=== PATIENT | male | born 1955 | race Caucasian/White ===

== ENCOUNTER 2017-11-25 17:19 | Inpatient (IN) | payer BC ==
[2017-11-25] MEDS ORDERED: ACETAMINOPHEN 325 MG TAB PO (19:00)
[2017-11-25] MEDS ORDERED: NACL 0.9% 3 ML SYG IV (19:00)
[2017-11-25 19:55] LABS: ADD MAN DIFF? NO
[2017-11-25 19:58] LABS: BASOPHILS % 0.5 % (0.0-2.0); EOSINOPHILS # 0.1 10^3/ul (0.0-0.5); EOSINOPHILS % 2.3 % (0.0-7.0); HEMATOCRIT 42.9 % (42.0-52.0); HEMOGLOBIN 14.9 g/dl (14.0-18.0); LYMPHOCYTES % 16.7 % (15.0-51.0); MEAN CORPUSCULAR HEMOGLOBIN 28.9 pg (29.0-33.0); MEAN CORPUSCULAR HGB CONC 34.7 g/dl (32.0-37.0); MEAN CORPUSCULAR VOLUME 83.1 fl (82.0-101.0); MEAN PLATELET VOLUME 11.1 fl (7.4-10.4); MONOCYTE # 0.6 10^3/ul (0.3-0.9); MONOCYTES % 9.1 % (0.0-11.0); NEUTROPHIL # 4.4 10^3/ul (1.6-7.5); NEUTROPHILS % 71.1 % (39.0-77.0); PLATELET COUNT 215 10^3/UL (140-415); RED BLOOD COUNT 5.16 10^6/ul (4.70-6.10); RED CELL DISTRIBUTION WIDTH 14.8 % (11.5-14.5)
[2017-11-25 19:58] LABS: WHITE BLOOD COUNT 6.2 10^3/ul (4.8-10.8)
[2017-11-25 20:18] LABS: ALANINE AMINOTRANSFERASE 61 IU/L (13-69); ALBUMIN 4.2 g/dl (3.3-4.9); ALBUMIN/GLOBULIN RATIO 1.16; ALKALINE PHOSPHATASE 71 IU/L (42-121); ANION GAP 12 (8-16); ASPARTATE AMINO TRANSFERASE 39 IU/L (15-46); BILIRUBIN,INDIRECT 0.7 mg/dl (0-1.1); BILIRUBIN,TOTAL 0.7 mg/dl (0.2-1.3); BLOOD UREA NITROGEN 27 mg/dl (7-20); CALCIUM 9.7 mg/dl (8.4-10.2); CARBON DIOXIDE 36 mmol/L (21-31); CHLORIDE 94 mmol/L (97-110); CREATININE 1.71 mg/dl (0.61-1.24); GLUCOSE 104 mg/dl (70-220); MAGNESIUM 1.9 mg/dl (1.7-2.5); POTASSIUM 3.3 mmol/L (3.5-5.1); SODIUM 139 mmol/L (135-144); TOTAL PROTEIN 7.8 g/dl (6.1-8.1)
[2017-11-25 20:28] LABS: INR 1.05; PROTIME 13.8 Sec (11.9-14.9); PT RATIO 1.1
[2017-11-25 20:29] LABS: PARTIAL THROMBOPLASTIN TIME 25.7 Sec (25.0-35.0)
[2017-11-25] MEDS: oxyCODONE (CR) 20 MG TAB [oxyCONTIN] PO (21:00)
[2017-11-25] MEDS: DOCUSATE SODIUM 100 MG CAP PO (21:34)
[2017-11-25] MEDS: LORAZEPAM 1 MG TAB PO (21:34)
[2017-11-25] MEDS: ATORVASTATIN 20 MG TAB PO (21:35)
[2017-11-25] MEDS: POTASSIUM CHLORIDE (SR) 20 MEQ TAB PO (21:35)
[2017-11-25] MEDS: GABAPENTIN 300 MG CAP PO (21:35)
[2017-11-25] MEDS: PAROXETINE (CR) 12.5 MG TAB PO (21:38)
[2017-11-26] MEDS: HYDROCODONE/APAP (10/325) TAB PO (04:26)
[2017-11-26] MEDS: PANTOPRAZOLE (EC) 40 MG TAB PO (05:38)
[2017-11-26] MEDS: BUMETANIDE 1 MG TAB PO ×2 (05:38→18:33)
[2017-11-26] MEDS: LORAZEPAM 1 MG TAB PO ×2 (09:40→21:13)
[2017-11-26] MEDS: METOLAZONE 2.5 MG TAB PO (09:40)
[2017-11-26] MEDS: GABAPENTIN 300 MG CAP PO ×3 (09:40→21:07)
[2017-11-26] MEDS: POTASSIUM CHLORIDE (SR) 20 MEQ TAB PO ×3 (09:40→21:09)
[2017-11-26] MEDS: PAROXETINE (CR) 12.5 MG TAB PO (09:41)
[2017-11-26] MEDS: MIDODRINE 5 MG TAB PO ×2 (09:41→18:32)
[2017-11-26] MEDS: oxyCODONE (CR) 20 MG TAB [oxyCONTIN] PO ×2 (09:41→21:11)
[2017-11-26] MEDS: SPIRONOLACTONE 25 MG TAB PO ×2 (09:42→21:10)
[2017-11-26] MEDS: INFLUENZA VIRUS VACCINE 0.5 ML (DISPENSING) IM* (09:43)
[2017-11-26 09:52] LABS: ADD UMIC NO; UR ASCORBIC ACID NEGATIVE (NEGATIVE); UR BILIRUBIN (Dip) NEGATIVE (NEGATIVE); UR BLOOD (Dip) NEGATIVE (NEGATIVE); UR CLARITY CLEAR (CLEAR); UR COLOR STRAW (YELLOW); UR GLUCOSE (Dip) NEGATIVE (NEGATIVE); UR KETONES (Dip) NEGATIVE (NEGATIVE); UR LEUKOCYTE ESTERASE (Dip) NEGATIVE Leu/ul (NEGATIVE); UR NITRITE (Dip) NEGATIVE (NEGATIVE); UR SPECIFIC GRAVITY (Dip) 1.008 (1.003-1.030); UR TOTAL PROTEIN (Dip) NEGATIVE (NEGATIVE); UR UROBILINOGEN (Dip) NEGATIVE (NEGATIVE)
[2017-11-26 10:03] LABS: PROTEIN/CREAT RATIO 0.22 RATIO
[2017-11-26] MEDS: SILVER NITRATE SWAB TOP (15:30)
[2017-11-26] MEDS ORDERED: RIVAROXABAN 20 MG TABLET PO (17:55)
[2017-11-26] MEDS: oxyCODONE 5 MG TAB PO (18:33)
[2017-11-26] MEDS ORDERED: VITAMIN A & D 5 GM OINT PACKET TOP (21:01)
[2017-11-26] MEDS: DOCUSATE SODIUM 100 MG CAP PO (21:07)
[2017-11-26] MEDS: ATORVASTATIN 20 MG TAB PO (21:10)
[2017-11-27] MEDS: oxyCODONE 5 MG TAB PO ×2 (03:02→11:04)
[2017-11-27] MEDS: PANTOPRAZOLE (EC) 40 MG TAB PO (06:15)
[2017-11-27] MEDS: BUMETANIDE 1 MG TAB PO ×2 (06:15→18:10)
[2017-11-27] MEDS ORDERED: LIDOCAINE 1.5%/EPI MPF (SDV) 30 ML VIAL INJ (07:00)
[2017-11-27] MEDS ORDERED: HEPARIN 1000 UNITS/ML 10 ML INJ (07:31)
[2017-11-27] MEDS ORDERED: NITROGLYCERIN (IC) 100 MCG/ML INJ (07:32)
[2017-11-27] MEDS ORDERED: FENTAnyl 50 MCG/ML VIAL (07:32)
[2017-11-27] MEDS ORDERED: MIDAZOLAM 1 MG/ML 2 ML INJ ×2 (07:32→07:44)
[2017-11-27] MEDS ORDERED: VERAPAMIL 5 MG INJ (07:32)
[2017-11-27 07:34] LABS: ADD MAN DIFF? NO
[2017-11-27] MEDS ORDERED: HYDROmorphONE 2 MG/ML SYG ×2 (07:38→07:58)
[2017-11-27 07:43] LABS: WHITE BLOOD COUNT 6.1 10^3/ul (4.8-10.8)
[2017-11-27 07:43] LABS: BASOPHILS % 0.5 % (0.0-2.0); EOSINOPHILS # 0.4 10^3/ul (0.0-0.5); EOSINOPHILS % 6.3 % (0.0-7.0); HEMATOCRIT 43.3 % (42.0-52.0); HEMOGLOBIN 14.6 g/dl (14.0-18.0); LYMPHOCYTES # 1.4 10^3/ul (0.8-2.9); LYMPHOCYTES % 22.4 % (15.0-51.0); MEAN CORPUSCULAR HEMOGLOBIN 28.4 pg (29.0-33.0); MEAN CORPUSCULAR HGB CONC 33.7 g/dl (32.0-37.0); MEAN CORPUSCULAR VOLUME 84.2 fl (82.0-101.0); MEAN PLATELET VOLUME 11.3 fl (7.4-10.4); MONOCYTE # 0.7 10^3/ul (0.3-0.9); NEUTROPHIL # 3.6 10^3/ul (1.6-7.5); NEUTROPHILS % 58.6 % (39.0-77.0); PLATELET COUNT 216 10^3/UL (140-415); RED BLOOD COUNT 5.14 10^6/ul (4.70-6.10); RED CELL DISTRIBUTION WIDTH 14.6 % (11.5-14.5)
[2017-11-27] MEDS ORDERED: DIPHENHYDRAMINE 50 MG INJ (07:57)
[2017-11-27 07:59] LABS: ANION GAP 16 (8-16); BLOOD UREA NITROGEN 31 mg/dl (7-20); CALCIUM 9.9 mg/dl (8.4-10.2); CARBON DIOXIDE 35 mmol/L (21-31); CHLORIDE 95 mmol/L (97-110); CREATININE 1.92 mg/dl (0.61-1.24); GLUCOSE 95 mg/dl (70-220); SODIUM 143 mmol/L (135-144)
[2017-11-27 08:00] LABS: INR 1.02; PROTIME 13.5 Sec (11.9-14.9); PT RATIO 1.1
[2017-11-27 08:44] LABS: ALANINE AMINOTRANSFERASE 51 IU/L (13-69); ALBUMIN 3.8 g/dl (3.3-4.9); ALBUMIN/GLOBULIN RATIO 1.18; ALKALINE PHOSPHATASE 57 IU/L (42-121); ANION GAP 16 (8-16); ASPARTATE AMINO TRANSFERASE 39 IU/L (15-46); BILIRUBIN,INDIRECT 0.8 mg/dl (0-1.1); BILIRUBIN,TOTAL 0.8 mg/dl (0.2-1.3); BLOOD UREA NITROGEN 32 mg/dl (7-20); CALCIUM 9.8 mg/dl (8.4-10.2); CARBON DIOXIDE 34 mmol/L (21-31); CHLORIDE 95 mmol/L (97-110); CREATININE 1.85 mg/dl (0.61-1.24); GLUCOSE 86 mg/dl (70-220); POTASSIUM 3.3 mmol/L (3.5-5.1); SODIUM 142 mmol/L (135-144)
[2017-11-27] MEDS ORDERED: ONDANSETRON 4 MG INJ (08:49)
[2017-11-27] MEDS: SOD CHLORIDE 0.45% 1,000 ML IV (09:32)
[2017-11-27] MEDS ORDERED: ONDANSETRON 4 MG INJ IV (10:00)
[2017-11-27 10:16] LABS: B-TYPE NATRIURETIC PEPTIDE 19 PG/ML (0-125)
[2017-11-27] MEDS: PAROXETINE (CR) 12.5 MG TAB PO (11:01)
[2017-11-27] MEDS: GABAPENTIN 300 MG CAP PO ×3 (11:01→20:14)
[2017-11-27] MEDS: DOCUSATE SODIUM 100 MG CAP PO ×2 (11:04→20:14)
[2017-11-27] MEDS: LORAZEPAM 1 MG TAB PO ×2 (11:04→20:15)
[2017-11-27] MEDS: POTASSIUM CHLORIDE (SR) 20 MEQ TAB PO ×4 (11:05→20:14)
[2017-11-27] MEDS: oxyCODONE (CR) 20 MG TAB [oxyCONTIN] PO ×2 (11:08→20:14)
[2017-11-27] MEDS: MIDODRINE 5 MG TAB PO ×2 (11:08→18:10)
[2017-11-27] MEDS: HYDROmorphONE 0.5 MG/0.5 ML SYG IV (16:42)
[2017-11-27] MEDS: METOLAZONE 2.5 MG TAB PO (18:11)
[2017-11-27] MEDS: HYDROCORTISONE 1% 28.35 GM OINT TOP (18:11)
[2017-11-27] MEDS: ATORVASTATIN 20 MG TAB PO (20:14)
[2017-11-28] MEDS: HYDROCORTISONE 1% 28.35 GM OINT TOP (00:50)
[2017-11-28] MEDS: HYDROmorphONE 0.5 MG/0.5 ML SYG IV ×2 (04:04→17:59)
[2017-11-28] MEDS: BUMETANIDE 1 MG TAB PO (05:28)
[2017-11-28] MEDS: SPIRONOLACTONE 25 MG TAB PO ×2 (05:29→17:12)
[2017-11-28] MEDS: PANTOPRAZOLE (EC) 40 MG TAB PO (05:29)
[2017-11-28 08:32] LABS: ADD MAN DIFF? NO
[2017-11-28 08:38] LABS: WHITE BLOOD COUNT 6.8 10^3/ul (4.8-10.8)
[2017-11-28 08:38] LABS: BASOPHILS % 0.3 % (0.0-2.0); EOSINOPHILS # 0.4 10^3/ul (0.0-0.5); EOSINOPHILS % 5.2 % (0.0-7.0); HEMATOCRIT 42.8 % (42.0-52.0); HEMOGLOBIN 14.7 g/dl (14.0-18.0); LYMPHOCYTES # 1.2 10^3/ul (0.8-2.9); LYMPHOCYTES % 17.4 % (15.0-51.0); MEAN CORPUSCULAR HEMOGLOBIN 29.1 pg (29.0-33.0); MEAN CORPUSCULAR HGB CONC 34.3 g/dl (32.0-37.0); MEAN CORPUSCULAR VOLUME 84.6 fl (82.0-101.0); MEAN PLATELET VOLUME 11.4 fl (7.4-10.4); MONOCYTE # 0.9 10^3/ul (0.3-0.9); MONOCYTES % 12.5 % (0.0-11.0); NEUTROPHIL # 4.4 10^3/ul (1.6-7.5); NEUTROPHILS % 64.2 % (39.0-77.0); PLATELET COUNT 210 10^3/UL (140-415); RED BLOOD COUNT 5.06 10^6/ul (4.70-6.10); RED CELL DISTRIBUTION WIDTH 14.6 % (11.5-14.5)
[2017-11-28] MEDS: MIDODRINE 5 MG TAB PO ×2 (08:51→17:11)
[2017-11-28] MEDS: METOLAZONE 2.5 MG TAB PO (08:52)
[2017-11-28] MEDS: PAROXETINE (CR) 12.5 MG TAB PO (08:52)
[2017-11-28] MEDS: oxyCODONE (CR) 20 MG TAB [oxyCONTIN] PO ×2 (08:53→20:28)
[2017-11-28] MEDS: DOCUSATE SODIUM 100 MG CAP PO ×2 (08:53→20:26)
[2017-11-28] MEDS: POTASSIUM CHLORIDE (SR) 20 MEQ TAB PO ×4 (08:53→20:27)
[2017-11-28] MEDS: LORAZEPAM 1 MG TAB PO ×2 (08:53→20:26)
[2017-11-28] MEDS: GABAPENTIN 300 MG CAP PO ×3 (08:53→20:27)
[2017-11-28 08:59] LABS: ALANINE AMINOTRANSFERASE 65 IU/L (13-69); ALBUMIN/GLOBULIN RATIO 1.11; ALKALINE PHOSPHATASE 61 IU/L (42-121); ANION GAP 16 (8-16); ASPARTATE AMINO TRANSFERASE 117 IU/L (15-46); BILIRUBIN,INDIRECT 0.9 mg/dl (0-1.1); BILIRUBIN,TOTAL 0.9 mg/dl (0.2-1.3); BLOOD UREA NITROGEN 35 mg/dl (7-20); CARBON DIOXIDE 38 mmol/L (21-31); CHLORIDE 91 mmol/L (97-110); CREATININE 2.26 mg/dl (0.61-1.24); GLUCOSE 92 mg/dl (70-220); POTASSIUM 3.1 mmol/L (3.5-5.1); SODIUM 142 mmol/L (135-144); TOTAL PROTEIN 7.6 g/dl (6.1-8.1)
[2017-11-28] MEDS: RIVAROXABAN 20 MG TABLET PO (17:11)
[2017-11-28] MEDS: NYSTATIN 30 GM POWDER BTL TOP (20:26)
[2017-11-28] MEDS: ATORVASTATIN 20 MG TAB PO (20:26)
[2017-11-29] MEDS: SPIRONOLACTONE 25 MG TAB PO ×2 (05:28→17:18)
[2017-11-29] MEDS: PANTOPRAZOLE (EC) 40 MG TAB PO (05:28)
[2017-11-29 08:23] LABS: ALANINE AMINOTRANSFERASE 63 IU/L (13-69); ALBUMIN 3.6 g/dl (3.3-4.9); ALBUMIN/GLOBULIN RATIO 1.16; ALKALINE PHOSPHATASE 52 IU/L (42-121); ANION GAP 14 (8-16); ASPARTATE AMINO TRANSFERASE 94 IU/L (15-46); BILIRUBIN,INDIRECT 0.6 mg/dl (0-1.1); BILIRUBIN,TOTAL 0.6 mg/dl (0.2-1.3); BLOOD UREA NITROGEN 42 mg/dl (7-20); CALCIUM 8.8 mg/dl (8.4-10.2); CARBON DIOXIDE 38 mmol/L (21-31); CHLORIDE 94 mmol/L (97-110); CREATININE 2.21 mg/dl (0.61-1.24); GLUCOSE 97 mg/dl (70-220); POTASSIUM 3.7 mmol/L (3.5-5.1); SODIUM 142 mmol/L (135-144); TOTAL PROTEIN 6.7 g/dl (6.1-8.1)
[2017-11-29 08:28] LABS: B-TYPE NATRIURETIC PEPTIDE 58 PG/ML (0-125)
[2017-11-29] MEDS: DOCUSATE SODIUM 100 MG CAP PO ×2 (08:31→20:24)
[2017-11-29] MEDS: METOLAZONE 2.5 MG TAB PO (08:31)
[2017-11-29] MEDS: GABAPENTIN 300 MG CAP PO ×3 (08:31→20:23)
[2017-11-29] MEDS: oxyCODONE (CR) 20 MG TAB [oxyCONTIN] PO ×2 (08:31→20:23)
[2017-11-29] MEDS: MIDODRINE 5 MG TAB PO ×2 (08:31→17:18)
[2017-11-29] MEDS: PAROXETINE (CR) 12.5 MG TAB PO (08:32)
[2017-11-29] MEDS: BUMETANIDE 1 MG TAB PO (08:32)
[2017-11-29] MEDS: LORAZEPAM 1 MG TAB PO ×2 (08:32→20:23)
[2017-11-29] MEDS: POTASSIUM CHLORIDE (SR) 20 MEQ TAB PO ×3 (08:32→20:24)
[2017-11-29] MEDS: HYDROmorphONE 0.5 MG/0.5 ML SYG IV ×2 (08:47→17:17)
[2017-11-29] MEDS: NYSTATIN 30 GM POWDER BTL TOP ×2 (12:18→20:22)
[2017-11-29] MEDS: RIVAROXABAN 20 MG TABLET PO (17:18)
[2017-11-29] MEDS: ATORVASTATIN 20 MG TAB PO (20:24)
[2017-11-30] MEDS: PANTOPRAZOLE (EC) 40 MG TAB PO (05:07)
[2017-11-30] MEDS: SPIRONOLACTONE 25 MG TAB PO ×2 (05:08→17:16)
[2017-11-30 08:24] LABS: ADD MAN DIFF? NO
[2017-11-30 08:32] LABS: BASOPHILS % 0.6 % (0.0-2.0); EOSINOPHILS # 0.4 10^3/ul (0.0-0.5); EOSINOPHILS % 7.4 % (0.0-7.0); HEMATOCRIT 39.1 % (42.0-52.0); HEMOGLOBIN 13.6 g/dl (14.0-18.0); LYMPHOCYTES % 17.8 % (15.0-51.0); MEAN CORPUSCULAR HEMOGLOBIN 28.9 pg (29.0-33.0); MEAN CORPUSCULAR HGB CONC 34.8 g/dl (32.0-37.0); MEAN CORPUSCULAR VOLUME 83.2 fl (82.0-101.0); MEAN PLATELET VOLUME 11.5 fl (7.4-10.4); MONOCYTE # 0.7 10^3/ul (0.3-0.9); MONOCYTES % 13.4 % (0.0-11.0); NEUTROPHIL # 3.3 10^3/ul (1.6-7.5); NEUTROPHILS % 60.6 % (39.0-77.0); PLATELET COUNT 194 10^3/UL (140-415); RED CELL DISTRIBUTION WIDTH 14.3 % (11.5-14.5)
[2017-11-30 08:32] LABS: WHITE BLOOD COUNT 5.4 10^3/ul (4.8-10.8)
[2017-11-30 08:57] LABS: ALANINE AMINOTRANSFERASE 59 IU/L (13-69); ALBUMIN 3.6 g/dl (3.3-4.9); ALBUMIN/GLOBULIN RATIO 0.97; ALKALINE PHOSPHATASE 56 IU/L (42-121); ANION GAP 14 (8-16); ASPARTATE AMINO TRANSFERASE 69 IU/L (15-46); BILIRUBIN,INDIRECT 0.5 mg/dl (0-1.1); BILIRUBIN,TOTAL 0.5 mg/dl (0.2-1.3); BLOOD UREA NITROGEN 37 mg/dl (7-20); CARBON DIOXIDE 37 mmol/L (21-31); CHLORIDE 93 mmol/L (97-110); CREATININE 2.07 mg/dl (0.61-1.24); GLUCOSE 98 mg/dl (70-220); POTASSIUM 3.2 mmol/L (3.5-5.1); SODIUM 141 mmol/L (135-144); TOTAL PROTEIN 7.3 g/dl (6.1-8.1)
[2017-11-30] MEDS: NYSTATIN 30 GM POWDER BTL TOP ×2 (08:58→20:30)
[2017-11-30] MEDS: HYDROCORTISONE 1% 28.35 GM OINT TOP (08:58)
[2017-11-30] MEDS: PAROXETINE (CR) 12.5 MG TAB PO (08:59)
[2017-11-30] MEDS: oxyCODONE (CR) 20 MG TAB [oxyCONTIN] PO ×2 (09:00→20:13)
[2017-11-30] MEDS: POTASSIUM CHLORIDE (SR) 20 MEQ TAB PO ×4 (09:01→20:14)
[2017-11-30] MEDS: METOLAZONE 2.5 MG TAB PO (09:02)
[2017-11-30] MEDS: BUMETANIDE 1 MG TAB PO (09:02)
[2017-11-30] MEDS: DOCUSATE SODIUM 100 MG CAP PO ×2 (09:02→20:14)
[2017-11-30] MEDS: GABAPENTIN 300 MG CAP PO ×3 (09:02→20:13)
[2017-11-30] MEDS: LORAZEPAM 1 MG TAB PO ×2 (09:03→20:15)
[2017-11-30] MEDS: MIDODRINE 5 MG TAB PO ×2 (09:04→17:16)
[2017-11-30] MEDS: HYDROmorphONE 0.5 MG/0.5 ML SYG IV ×2 (10:00→20:18)
[2017-11-30] MEDS ORDERED: POLYETHYLENE GLYCOL 17 GM PACKET PO (13:30)
[2017-11-30] MEDS: RIVAROXABAN 20 MG TABLET PO (17:16)
[2017-11-30] MEDS: POLYETHYLENE GLYCOL 17 GM PACKET PO (20:00)
[2017-11-30] MEDS: ATORVASTATIN 20 MG TAB PO (20:14)
[2017-12-01] MEDS: HYDROmorphONE 0.5 MG/0.5 ML SYG IV ×3 (02:03→20:40)
[2017-12-01] MEDS: SPIRONOLACTONE 25 MG TAB PO (04:51)
[2017-12-01] MEDS: DIPHENHYDRAMINE 25 MG CAP PO (04:51)
[2017-12-01] MEDS: PANTOPRAZOLE (EC) 40 MG TAB PO (04:51)
[2017-12-01] MEDS: GABAPENTIN 300 MG CAP PO ×3 (08:23→20:51)
[2017-12-01] MEDS: LORAZEPAM 1 MG TAB PO ×2 (08:23→20:43)
[2017-12-01] MEDS: BUMETANIDE 1 MG TAB PO (08:23)
[2017-12-01] MEDS: PAROXETINE (CR) 12.5 MG TAB PO (08:23)
[2017-12-01] MEDS: oxyCODONE (CR) 20 MG TAB [oxyCONTIN] PO ×2 (08:23→20:44)
[2017-12-01] MEDS: DOCUSATE SODIUM 100 MG CAP PO ×2 (08:23→20:50)
[2017-12-01] MEDS: POTASSIUM CHLORIDE (SR) 20 MEQ TAB PO ×4 (08:24→20:51)
[2017-12-01] MEDS: NYSTATIN 30 GM POWDER BTL TOP ×2 (08:26→20:59)
[2017-12-01] MEDS: MIDODRINE 5 MG TAB PO ×2 (08:26→17:33)
[2017-12-01] MEDS: POLYETHYLENE GLYCOL 17 GM PACKET PO (08:29)
[2017-12-01 10:54] LABS: ALANINE AMINOTRANSFERASE 56 IU/L (13-69); ALBUMIN 3.6 g/dl (3.3-4.9); ALKALINE PHOSPHATASE 52 IU/L (42-121); ANION GAP 15 (8-16); ASPARTATE AMINO TRANSFERASE 52 IU/L (15-46); BILIRUBIN,INDIRECT 0.4 mg/dl (0-1.1); BILIRUBIN,TOTAL 0.4 mg/dl (0.2-1.3); BLOOD UREA NITROGEN 37 mg/dl (7-20); CALCIUM 9.2 mg/dl (8.4-10.2); CARBON DIOXIDE 34 mmol/L (21-31); CHLORIDE 95 mmol/L (97-110); CREATININE 2.01 mg/dl (0.61-1.24); GLUCOSE 104 mg/dl (70-220); MAGNESIUM 1.9 mg/dl (1.7-2.5); SODIUM 141 mmol/L (135-144); TOTAL PROTEIN 7.2 g/dl (6.1-8.1)
[2017-12-01] MEDS: SPIRONOLACTONE 50 MG TAB PO (17:33)
[2017-12-01] MEDS: RIVAROXABAN 20 MG TABLET PO (17:33)
[2017-12-01] MEDS: ATORVASTATIN 20 MG TAB PO (20:52)
[2017-12-02] MEDS: HYDROmorphONE 0.5 MG/0.5 ML SYG IV ×2 (01:24→05:19)
[2017-12-02] MEDS: PANTOPRAZOLE (EC) 40 MG TAB PO (05:22)
[2017-12-02] MEDS: SPIRONOLACTONE 50 MG TAB PO ×2 (05:23→18:22)
[2017-12-02 08:11] LABS: ADD MAN DIFF? NO
[2017-12-02] MEDS: POTASSIUM CHLORIDE (SR) 20 MEQ TAB PO ×3 (08:16→21:07)
[2017-12-02] MEDS: PAROXETINE (CR) 12.5 MG TAB PO (08:17)
[2017-12-02] MEDS: BUMETANIDE 1 MG TAB PO (08:17)
[2017-12-02] MEDS: GABAPENTIN 300 MG CAP PO ×3 (08:18→21:07)
[2017-12-02] MEDS: oxyCODONE (CR) 20 MG TAB [oxyCONTIN] PO ×2 (08:19→21:09)
[2017-12-02 08:25] LABS: WHITE BLOOD COUNT 5.3 10^3/ul (4.8-10.8)
[2017-12-02 08:25] LABS: BASOPHILS % 0.8 % (0.0-2.0); EOSINOPHILS # 0.4 10^3/ul (0.0-0.5); EOSINOPHILS % 6.8 % (0.0-7.0); HEMATOCRIT 39.8 % (42.0-52.0); HEMOGLOBIN 13.6 g/dl (14.0-18.0); LYMPHOCYTES # 1.1 10^3/ul (0.8-2.9); LYMPHOCYTES % 21.4 % (15.0-51.0); MEAN CORPUSCULAR HEMOGLOBIN 28.4 pg (29.0-33.0); MEAN CORPUSCULAR HGB CONC 34.2 g/dl (32.0-37.0); MEAN CORPUSCULAR VOLUME 83.1 fl (82.0-101.0); MEAN PLATELET VOLUME 11.6 fl (7.4-10.4); MONOCYTE # 0.6 10^3/ul (0.3-0.9); MONOCYTES % 10.4 % (0.0-11.0); NEUTROPHIL # 3.2 10^3/ul (1.6-7.5); NEUTROPHILS % 60.2 % (39.0-77.0); PLATELET COUNT 212 10^3/UL (140-415); RED BLOOD COUNT 4.79 10^6/ul (4.70-6.10); RED CELL DISTRIBUTION WIDTH 14.1 % (11.5-14.5)
[2017-12-02] MEDS: LORAZEPAM 1 MG TAB PO ×2 (08:35→21:07)
[2017-12-02] MEDS: MIDODRINE 5 MG TAB PO ×2 (08:35→18:20)
[2017-12-02] MEDS: POLYETHYLENE GLYCOL 17 GM PACKET PO (08:36)
[2017-12-02] MEDS: DOCUSATE SODIUM 100 MG CAP PO ×2 (08:36→21:07)
[2017-12-02 08:47] LABS: ALANINE AMINOTRANSFERASE 52 IU/L (13-69); ALBUMIN 3.7 g/dl (3.3-4.9); ALBUMIN/GLOBULIN RATIO 1.08; ALKALINE PHOSPHATASE 53 IU/L (42-121); ANION GAP 13 (8-16); ASPARTATE AMINO TRANSFERASE 50 IU/L (15-46); BILIRUBIN,INDIRECT 0.3 mg/dl (0-1.1); BILIRUBIN,TOTAL 0.3 mg/dl (0.2-1.3); BLOOD UREA NITROGEN 36 mg/dl (7-20); CALCIUM 8.9 mg/dl (8.4-10.2); CARBON DIOXIDE 35 mmol/L (21-31); CHLORIDE 95 mmol/L (97-110); CREATININE 1.83 mg/dl (0.61-1.24); GLUCOSE 97 mg/dl (70-220); MAGNESIUM 1.8 mg/dl (1.7-2.5); POTASSIUM 3.3 mmol/L (3.5-5.1); SODIUM 140 mmol/L (135-144); TOTAL PROTEIN 7.1 g/dl (6.1-8.1)
[2017-12-02] MEDS: NYSTATIN 30 GM POWDER BTL TOP ×2 (09:00→21:10)
[2017-12-02] MEDS: HYDROCORTISONE 1% 28.35 GM OINT TOP (16:11)
[2017-12-02] MEDS: RIVAROXABAN 20 MG TABLET PO (18:20)
[2017-12-02] MEDS: ATORVASTATIN 20 MG TAB PO (21:07)
[2017-12-03] MEDS ORDERED: VITAMIN A & D 5 GM OINT PACKET TOP (00:52)
[2017-12-03] MEDS: HYDROmorphONE 0.5 MG/0.5 ML SYG IV (02:15)
[2017-12-03] MEDS: SPIRONOLACTONE 50 MG TAB PO ×2 (05:51→17:32)
[2017-12-03] MEDS: PANTOPRAZOLE (EC) 40 MG TAB PO (05:52)
[2017-12-03] MEDS: BUMETANIDE 1 MG TAB PO (08:27)
[2017-12-03] MEDS: PAROXETINE (CR) 12.5 MG TAB PO (08:30)
[2017-12-03] MEDS: GABAPENTIN 300 MG CAP PO ×3 (08:32→20:22)
[2017-12-03] MEDS: DOCUSATE SODIUM 100 MG CAP PO ×2 (08:33→20:22)
[2017-12-03] MEDS: LORAZEPAM 1 MG TAB PO ×2 (08:33→20:22)
[2017-12-03] MEDS: POTASSIUM CHLORIDE (SR) 20 MEQ TAB PO ×3 (08:34→20:22)
[2017-12-03] MEDS: oxyCODONE (CR) 20 MG TAB [oxyCONTIN] PO ×2 (08:35→20:22)
[2017-12-03] MEDS: POLYETHYLENE GLYCOL 17 GM PACKET PO (08:36)
[2017-12-03] MEDS: MIDODRINE 5 MG TAB PO ×2 (08:47→17:31)
[2017-12-03] MEDS: NYSTATIN 30 GM POWDER BTL TOP ×2 (09:00→20:23)
[2017-12-03 14:10] LABS: C-REACTIVE PROTEIN < 0.5 mg/dl (0.0-0.9)
[2017-12-03 15:36] LABS: ALANINE AMINOTRANSFERASE 57 IU/L (13-69); ALBUMIN 4.2 g/dl (3.3-4.9); ALKALINE PHOSPHATASE 56 IU/L (42-121); ANION GAP 17 (8-16); ASPARTATE AMINO TRANSFERASE 49 IU/L (15-46); BILIRUBIN,INDIRECT 0.3 mg/dl (0-1.1); BILIRUBIN,TOTAL 0.3 mg/dl (0.2-1.3); BLOOD UREA NITROGEN 31 mg/dl (7-20); CALCIUM 9.3 mg/dl (8.4-10.2); CARBON DIOXIDE 33 mmol/L (21-31); CHLORIDE 94 mmol/L (97-110); CREATININE 1.84 mg/dl (0.61-1.24); GLUCOSE 88 mg/dl (70-220); POTASSIUM 3.2 mmol/L (3.5-5.1); SODIUM 141 mmol/L (135-144); TOTAL PROTEIN 7.7 g/dl (6.1-8.1)
[2017-12-03] MEDS: RIVAROXABAN 20 MG TABLET PO (17:31)
[2017-12-03] MEDS: BETAMETHASONE/CLOTRIMAZOLE 15 GM CR TOP (17:32)
[2017-12-03] MEDS: ATORVASTATIN 20 MG TAB PO (20:22)
[2017-12-03] MEDS: MAGNESIUM OXIDE 400 MG TAB PO (20:22)
[2017-12-04] MEDS: PANTOPRAZOLE (EC) 40 MG TAB PO (05:13)
[2017-12-04] MEDS: SPIRONOLACTONE 50 MG TAB PO ×2 (05:14→17:41)
[2017-12-04 07:46] LABS: ADD MAN DIFF? NO
[2017-12-04 07:51] LABS: BASOPHIL # 0.1 10^3/ul (0.0-0.1); EOSINOPHILS # 0.2 10^3/ul (0.0-0.5); EOSINOPHILS % 4.6 % (0.0-7.0); HEMATOCRIT 41.3 % (42.0-52.0); HEMOGLOBIN 14.3 g/dl (14.0-18.0); LYMPHOCYTES # 1.1 10^3/ul (0.8-2.9); LYMPHOCYTES % 20.9 % (15.0-51.0); MEAN CORPUSCULAR HEMOGLOBIN 28.9 pg (29.0-33.0); MEAN CORPUSCULAR HGB CONC 34.6 g/dl (32.0-37.0); MEAN CORPUSCULAR VOLUME 83.4 fl (82.0-101.0); MEAN PLATELET VOLUME 11.6 fl (7.4-10.4); MONOCYTE # 0.5 10^3/ul (0.3-0.9); MONOCYTES % 10.8 % (0.0-11.0); NEUTROPHIL # 3.1 10^3/ul (1.6-7.5); NEUTROPHILS % 62.3 % (39.0-77.0); PLATELET COUNT 206 10^3/UL (140-415); RED BLOOD COUNT 4.95 10^6/ul (4.70-6.10); RED CELL DISTRIBUTION WIDTH 14.5 % (11.5-14.5)
[2017-12-04 08:22] LABS: ALANINE AMINOTRANSFERASE 60 IU/L (13-69); ALBUMIN/GLOBULIN RATIO 1.05; ALKALINE PHOSPHATASE 60 IU/L (42-121); ANION GAP 15 (8-16); ASPARTATE AMINO TRANSFERASE 48 IU/L (15-46); BILIRUBIN,INDIRECT 0.4 mg/dl (0-1.1); BILIRUBIN,TOTAL 0.4 mg/dl (0.2-1.3); BLOOD UREA NITROGEN 32 mg/dl (7-20); CALCIUM 9.3 mg/dl (8.4-10.2); CARBON DIOXIDE 33 mmol/L (21-31); CHLORIDE 98 mmol/L (97-110); CREATININE 1.82 mg/dl (0.61-1.24); GLUCOSE 100 mg/dl (70-220); MAGNESIUM 1.8 mg/dl (1.7-2.5); PHOSPHORUS 2.5 mg/dl (2.5-4.9); SODIUM 142 mmol/L (135-144); TOTAL PROTEIN 7.8 g/dl (6.1-8.1)
[2017-12-04] MEDS: GABAPENTIN 300 MG CAP PO ×3 (09:04→22:06)
[2017-12-04] MEDS: POTASSIUM CHLORIDE (SR) 20 MEQ TAB PO (09:05)
[2017-12-04] MEDS: MIDODRINE 5 MG TAB PO ×2 (09:06→17:09)
[2017-12-04] MEDS: oxyCODONE (CR) 20 MG TAB [oxyCONTIN] PO ×2 (09:07→22:06)
[2017-12-04] MEDS: BUMETANIDE 1 MG TAB PO (09:08)
[2017-12-04] MEDS: DOCUSATE SODIUM 100 MG CAP PO ×2 (09:08→22:06)
[2017-12-04] MEDS: LORAZEPAM 1 MG TAB PO ×2 (09:08→22:06)
[2017-12-04] MEDS: POLYETHYLENE GLYCOL 17 GM PACKET PO (09:08)
[2017-12-04] MEDS: MAGNESIUM OXIDE 400 MG TAB PO ×2 (09:08→22:06)
[2017-12-04] MEDS: NYSTATIN 30 GM POWDER BTL TOP ×2 (09:09→22:07)
[2017-12-04] MEDS: BETAMETHASONE/CLOTRIMAZOLE 15 GM CR TOP (09:09)
[2017-12-04] MEDS: PAROXETINE (CR) 12.5 MG TAB PO (10:19)
[2017-12-04] MEDS: HYDROCORTISONE 1% 28.35 GM OINT TOP (10:19)
[2017-12-04 15:47] LABS: RAPID PLASMA REAGIN NONREACTIVE (NR)
[2017-12-04] MEDS: RIVAROXABAN 20 MG TABLET PO (17:09)
[2017-12-04] MEDS: ATORVASTATIN 20 MG TAB PO (22:06)
[2017-12-05] MEDS: SPIRONOLACTONE 50 MG TAB PO (05:42)
[2017-12-05] MEDS: PANTOPRAZOLE (EC) 40 MG TAB PO (05:42)
[2017-12-05 07:58] LABS: ALANINE AMINOTRANSFERASE 54 IU/L (13-69); ALBUMIN 3.8 g/dl (3.3-4.9); ALBUMIN/GLOBULIN RATIO 1.11; ALKALINE PHOSPHATASE 51 IU/L (42-121); ANION GAP 13 (8-16); ASPARTATE AMINO TRANSFERASE 41 IU/L (15-46); BILIRUBIN,INDIRECT 0.2 mg/dl (0-1.1); BILIRUBIN,TOTAL 0.2 mg/dl (0.2-1.3); BLOOD UREA NITROGEN 30 mg/dl (7-20); CALCIUM 8.8 mg/dl (8.4-10.2); CARBON DIOXIDE 33 mmol/L (21-31); CHLORIDE 100 mmol/L (97-110); CREATININE 1.71 mg/dl (0.61-1.24); GLUCOSE 104 mg/dl (70-220); POTASSIUM 3.4 mmol/L (3.5-5.1); SODIUM 143 mmol/L (135-144); TOTAL PROTEIN 7.2 g/dl (6.1-8.1)
[2017-12-05] MEDS: POLYETHYLENE GLYCOL 17 GM PACKET PO (09:00)
[2017-12-05] MEDS: oxyCODONE (CR) 20 MG TAB [oxyCONTIN] PO (09:50)
[2017-12-05] MEDS: MAGNESIUM OXIDE 400 MG TAB PO (09:50)
[2017-12-05] MEDS: NYSTATIN 30 GM POWDER BTL TOP (09:51)
[2017-12-05] MEDS: BETAMETHASONE/CLOTRIMAZOLE 15 GM CR TOP (09:51)
[2017-12-05] MEDS: PAROXETINE (CR) 12.5 MG TAB PO (09:51)
[2017-12-05] MEDS: LORAZEPAM 1 MG TAB PO (09:51)
[2017-12-05] MEDS: DOCUSATE SODIUM 100 MG CAP PO (09:51)
[2017-12-05] MEDS: GABAPENTIN 300 MG CAP PO (09:55)
[2017-12-05] MEDS: MIDODRINE 5 MG TAB PO (09:55)
[2017-12-05] MEDS: POTASSIUM CHLORIDE (SR) 20 MEQ TAB PO (09:59)
== END 2017-12-05 11:08 | disposition home health service (06) | DRG 286 ==
LOC: TEL 12-02 03:00
PROC: 4A023N7 Measurement of Cardiac Sampling and Pressure, Left Heart, Percutaneous Approach (ICD-10-PCS; principal; 2017-11-27 07:09)
PROC: B211YZZ Fluoroscopy of Multiple Coronary Arteries using Other Contrast (ICD-10-PCS; 2017-11-27 07:09)
PROC: B215YZZ Fluoroscopy of Left Heart using Other Contrast (ICD-10-PCS; 2017-11-27 07:09)
PROC: 0JB70ZX Excision of Back Subcutaneous Tissue and Fascia, Open Approach, Diagnostic (ICD-10-PCS; 2017-11-27 07:09)
DX: T82.595A Other mechanical complication of umbrella device, initial encounter (principal); L89.153 Pressure ulcer of sacral region, stage 3; T82.858A Stenosis of other vascular prosthetic devices, implants and grafts, initial encounter; N18.3 Chronic kidney disease, stage 3 (moderate); Z68.44 Body mass index [BMI] 60.0-69.9, adult; E66.01 Morbid (severe) obesity due to excess calories; R60.1 Generalized edema; E87.6 Hypokalemia; E78.5 Hyperlipidemia, unspecified; K21.9 Gastro-esophageal reflux disease without esophagitis; F41.9 Anxiety disorder, unspecified; F32.9 Major depressive disorder, single episode, unspecified; G47.33 Obstructive sleep apnea (adult) (pediatric); M81.0 Age-related osteoporosis without current pathological fracture; G47.00 Insomnia, unspecified; Y83.8 Other surgical procedures as the cause of abnormal reaction of the patient, or of later complication, without mention of misadventure at the time of the procedure; Y92.019 Unspecified place in single-family (private) house as the place of occurrence of the external cause; Z87.891 Personal history of nicotine dependence; Z86.718 Personal history of other venous thrombosis and embolism; Z86.711 Personal history of pulmonary embolism; Z79.01 Long term (current) use of anticoagulants; Z79.02 Long term (current) use of antithrombotics/antiplatelets
CPT/HCPCS: 71045; 75825; 80048; 80053; 81003; 82570; 83735; 83880; 84100; 84443; 85025; 85610; 85651; 85730; 86140; 86592; 87070; 87075; 87252; 93005; 93306; 93458; 93970; 97116; 97161; 97530